=== PATIENT | male | born 1960 | race Caucasian/White ===

== ENCOUNTER 2018-02-08 14:11 | Emergency (ER) | payer MEDICARE, SELFPAY ==
[2018-02-08 14:20] VITALS: BP 144/82; PULSE 94; RESP 16; TEMP 36.4; O2SAT 99
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
== END 2018-02-08 14:50 | disposition home or self-care (01) ==
PROVIDERS: Emergency Provider Emergency Medicine
DX: M25.572 Pain in left ankle and joints of left foot (principal)
CPT/HCPCS: 99282

== ENCOUNTER 2020-02-27 23:12 | Emergency (ER) | payer OTHER, MEDICARE, SELFPAY ==
[2020-02-27 23:15] VITALS: BP 208/100; PULSE 92; RESP 18; TEMP 36.6; O2SAT 98
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
[2020-02-27 23:43] VITALS: BP 202/108
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
[2020-02-28 01:08] VITALS: BP 200/102; PULSE 88; RESP 18; O2SAT 98
== END 2020-02-28 01:00 | disposition home or self-care (01) ==
PROVIDERS: Emergency Provider Emergency Medicine
DX: R51.9 Headache, unspecified (principal); M79.672 Pain in left foot; V89.2XXA Person injured in unspecified motor-vehicle accident, traffic, initial encounter
CPT/HCPCS: 70450; 72125; 73610; 99283; 99284